=== PATIENT | female | born 1985 | race African-American/Black ===

== ENCOUNTER 2025-01-01 09:46 | Inpatient (IN) | payer OTHER ==
[~2025-01-01] VITALS: Ht 167.6 cm; Wt 88.6 kg
[2025-01-01] MEDS: LORazepam 1 MG TABLET PO ONE (11:22)
[2025-01-01] MEDS: DiphenhydrAMINE HCL 25 MG CAPSULE PO ONE (11:22)
[2025-01-01 11:40] LABS: BASOPHILS % (AUTO) 0.6 % (0.0-2.0); EOSINOPHILS % (AUTO) 0.5 % (1.0-6.0); HEMATOCRIT 35.4 % (36-46); HEMOGLOBIN 11.2 g/dL (12.0-16.0); LYMPHOCYTES # (AUTO) 1.1 K/uL (1.0-4.8); LYMPHOCYTES % (AUTO) 10.3 % (22.0-44.0); MEAN CORPUSCULAR HEMOGLOBIN 23.1 pg (26.0-34.0); MEAN CORPUSCULAR HGB CONC 31.7 G/dL (31.0-37.0); MEAN CORPUSCULAR VOLUME 73 fL (80-100); MONOCYTES # (AUTO) 0.5 K/uL (0.1-1.0); NEUTROPHILS # (AUTO) 8.7 K/uL (1.8-7.7); NEUTROPHILS % (AUTO) 83.6 % (40.0-70.0); PLATELET COUNT (AUTO) 349 K/uL (150-450); RED BLOOD CELL COUNT(AUTO) 4.86 MIL/uL (4.00-5.20); RED CELL DISTRIBUTION WIDTH 16.4 % (11.5-14.5); WHITE BLOOD COUNT (AUTO) 10.4 K/uL (4.5-11.0)
[2025-01-01 11:48] LABS: ANION GAP 6 mmol/L (8-16); CARBON DIOXIDE 30 mmol/L (22-29); CHLORIDE 103 mmol/L (98-107); CREATININE 0.84 mg/dL (0.60-1.30); GLOMERULAR FILTR. RATE CALC > 60 mL/min (>60); GLUCOSE,RANDOM 89 mg/dL (70-110); POTASSIUM 4.4 mmol/L (3.5-5.1); SODIUM SERUM 139 mmol/L (136-145); UREA NITROGEN, BLOOD 16 mg/dL (7-18)
[2025-01-01 11:56] LABS: RBC MORPHOLOGY COMMENT ABNORMAL RBC MORPH
[2025-01-01] MEDS ORDERED: ONDANSETRON HCL 4 MG/2 ML VIAL IVP PRN (13:00)
[2025-01-01] MEDS ORDERED: MAGNESIUM HYDROXIDE SUSPENSION 30 ML UDCUP PO PRN (13:00)
[2025-01-01] MEDS: SODIUM CHLORIDE 0.9% 1,000 ML IV ONE (13:15)
[2025-01-01 19:50] VITALS: BP 111/74; PULSE 72; RESP 18; TEMP 98.1; O2SAT 98
[2025-01-01] MEDS: FAMOTIDINE 20 MG TABLET PO SCH (20:58)
[2025-01-02] MEDS: RIZATRIPTAN BENZOATE 10 MG TABLET PO ONE (01:02)
[2025-01-02 04:30] VITALS: BP 117/65; PULSE 78; RESP 18; TEMP 98.1; O2SAT 100
[2025-01-02 07:25] VITALS: BP 90/54; PULSE 65; RESP 20; TEMP 98.1; O2SAT 100
[2025-01-02 11:07] LABS: APPEARANCE,URINE CLEAR (CLEAR); BILIRUBIN,URINE NEGATIVE (NEGATIVE); COLOR,URINE COLORLESS (YELLOW); GLUCOSE, URINE (UA) NEGATIVE (NEGATIVE); KETONES,URINE NEGATIVE (NEGATIVE); LEUKOCYTE ESTERASE ,URINE NEGATIVE (NEGATIVE); NITRATE,URINE NEGATIVE (NEGATIVE); OCCULT BLOOD,URINE NEGATIVE (NEGATIVE); PROTEIN,URINE NEGATIVE (NEGATIVE); SPECIFIC GRAVITIY, URINE 1.009 (1.003-1.030); UROBILINOGEN,URINE <=1.0 mg/dL (<=1.0)
[2025-01-02 11:33] LABS: ALCOHOL, URINE DRUG SCREEN NEGATIVE (NEGATIVE); AMPHET/METH SCREEN,URINE NEGATIVE (NEGATIVE); BARBITURATE SCREEN, URINE NEGATIVE (NEGATIVE); BENZODIAZEPINES SCREEN,URINE NEGATIVE (NEGATIVE); CANNABINOID SCREEN,URINE NEGATIVE (NEGATIVE); COCAINE SCREEN,URINE NEGATIVE (NEGATIVE); METHADONE SCREEN, URINE NEGATIVE (NEGATIVE); OPIATE SCREEN,URINE NEGATIVE (NEGATIVE); PHENCYCLIDINE SCREEN,URINE NEGATIVE (NEGATIVE)
[2025-01-02 11:38] LABS: BACTERIA,URINE None Seen /HPF (None Seen); RBC,URINE None Seen /HPF (0-2); WBC,URINE None Seen /HPF (0-5)
[2025-01-02] MEDS: SODIUM CHLORIDE 0.9% 1,000 ML IV ONE (12:51)
[2025-01-02] MEDS: SUMAtriptan SUCCINATE 25 MG TABLET PO PRN (12:52)
[2025-01-02] MEDS: MULTIVITAMINS WITH MINERALS, THERAPEUTIC TABLET PO SCH (13:14)
[2025-01-02 19:53] VITALS: BP 106/69; PULSE 80; RESP 19; TEMP 97.9; O2SAT 96
[2025-01-02] MEDS: MELATONIN 3 MG TABLET PO SCH (22:17)
[2025-01-03] MEDS ORDERED: SODIUM CHLORIDE 0.9% 250 ML IV ONE (02:30)
[2025-01-03 04:49] VITALS: BP 103/60; PULSE 68; RESP 18; TEMP 98.1; O2SAT 99
[2025-01-03 07:42] VITALS: BP 98/68; PULSE 65; RESP 18; TEMP 98.2; O2SAT 100
[2025-01-03 20:04] VITALS: BP 118/81; PULSE 93; RESP 19; TEMP 98.2; O2SAT 98
[2025-01-03] MEDS: MIRTAZAPINE 15 MG TABLET PO SCH (21:02)
[2025-01-04 05:12] VITALS: BP 101/62; PULSE 74; RESP 18; TEMP 97.8; O2SAT 98
[2025-01-04 08:07] VITALS: BP 101/66; PULSE 62; RESP 18; TEMP 98.1; O2SAT 96
[2025-01-04] MEDS ORDERED: MIRT-89 PO (10:25)
[2025-01-04] MEDS ORDERED: ACET-2247 PO (10:26)
[2025-01-04] MEDS ORDERED: MULT-1303 PO (10:26)
[2025-01-04] MEDS ORDERED: SUMA25TA15 PO (10:28)
[2025-01-04] MEDS: ACETAMINOPHEN 325 MG TABLET PO PRN (11:53)
== END 2025-01-04 20:22 | DRG 914 ==
LOC: EMS 09:50 → EDH 14:01 → 6S 16:33
PROVIDERS: ADMIT Internal Medicine; ATTEND Internal Medicine
DX: S09.8XXA Other specified injuries of head, initial encounter (principal); F33.2 Major depressive disorder, recurrent severe without psychotic features; D50.9 Iron deficiency anemia, unspecified; F19.10 Other psychoactive substance abuse, uncomplicated; G43.909 Migraine, unspecified, not intractable, without status migrainosus; E66.9 Obesity, unspecified; I10 Essential (primary) hypertension; G47.00 Insomnia, unspecified; F41.9 Anxiety disorder, unspecified; Z68.31 Body mass index [BMI] 31.0-31.9, adult; Y08.89XA Assault by other specified means, initial encounter; Y93.89 Activity, other specified; Y92.148 Other place in prison as the place of occurrence of the external cause; Y99.8 Other external cause status
CPT/HCPCS: 70450; 71045; 74176; 80048; 80307; 81001; 84703; 85025; 99285; J7050; 36415-L1; 36415-TC